=== PATIENT | male | born 1985 | race African-American/Black ===

== ENCOUNTER 2019-01-09 04:16 | Emergency (ER) | payer MEDICARE, MEDICAID ==
[~2019-01-09] VITALS: Ht 180.3 cm; Wt 73.0 kg
[~2019-01-09 04:16] MED LIST: ABILIFY
[2019-01-09 05:45] VITALS: BP 118/69
== END 2019-01-09 06:13 | disposition left against medical advice (07) ==
LOC: ER 04:16
DX: J45.909 Unspecified asthma, uncomplicated (principal); F12.10 Cannabis abuse, uncomplicated; F17.200 Nicotine dependence, unspecified, uncomplicated; Z88.8 Allergy status to other drugs, medicaments and biological substances
CPT/HCPCS: 99281

== ENCOUNTER 2019-01-10 13:48 | Inpatient (IN) | payer MEDICARE, MEDICAID ==
[~2019-01-10] VITALS: Ht 175.3 cm; Wt 80.8 kg
[2019-01-10] MEDS ORDERED: HALOPERIDOL LACTATE 5MG/ML VIAL IM ONE (14:15)
[2019-01-10] MEDS ORDERED: LORAZEPAM 2MG/ML CPJ IM ONE ×2 (14:15→16:00)
[2019-01-10] MEDS ORDERED: SODIUM CHLORIDE 0.9% 1,000 ML IV ONE (15:41)
[2019-01-10] MEDS ORDERED: DIPHENHYDRAMINE 50MG/ML VIAL IM ONE (16:00)
[2019-01-10 16:56] LABS: HEMATOCRIT. 38.1 % (42.0-52.0); HEMOGLOBIN. 12.7 g/dL (14.0-18.0); MEAN CORPUSCULAR HEMOGLOBIN 27.5 pg (28.0-32.0); MEAN CORPUSCULAR VOLUME 82.5 fL (80.0-94.0); MEAN PLATELET VOLUME 7.7 fl (7.4-10.4); PLATELET 265 x1000/uL (130-400); RED BLOOD CELL COUNT 4.62 mill/uL (4.7-6.1); RED CELL DISTRIBUTION WIDTH 14.7 % (11.6-14.6)
[2019-01-10 17:00] LABS: CHLORIDE 109 mEq/L (98-107)
[2019-01-10 17:03] LABS: ETHANOL BLOOD < 10 mg/dL
[2019-01-10 17:06] LABS: *BARBITURATES SCREEN URINE NEGATIVE (NEGATIVE); *COCAINE SCREEN URINE NEGATIVE (NEGATIVE)
[2019-01-10 17:07] LABS: *AMPHETAMINES SCREEN URINE NEGATIVE (NEGATIVE); *BENZODIAZEPINES SCREEN URINE NEGATIVE (NEGATIVE); METHADONE URINE SCREEN NEGATIVE (NEGATIVE); OPIATES URINE SCREEN NEGATIVE (NEGATIVE)
[2019-01-10 17:08] LABS: CANNABINOID URINE SCREEN PRESUMTIVE POSITIVE (NEGATIVE); PHENCYCLIDINE URINE SCREEN NEGATIVE (NEGATIVE)
[2019-01-10 18:10] LABS: PLATELET ESTIMATE NORMAL
[2019-01-11] MEDS ORDERED: HALOPERIDOL LACTATE 5MG/ML VIAL IM ONE ×3 (02:45→16:45)
[2019-01-11] MEDS ORDERED: DIPHENHYDRAMINE 50MG/ML VIAL IM ONE ×2 (03:30→18:30)
[2019-01-11] MEDS ORDERED: LORAZEPAM 2MG/ML CPJ IM ONE ×4 (04:30→18:30)
[2019-01-11] MEDS ORDERED: LORAZEPAM 2MG/ML CPJ IM STA (09:28)
[2019-01-11] MEDS ORDERED: OLANZAPINE 10 MG/VIAL IM ONE (09:30)
[2019-01-12] MEDS ORDERED: DIPHENHYDRAMINE 50MG/ML VIAL IM STA ×2 (05:26→13:12)
[2019-01-12] MEDS ORDERED: HALOPERIDOL LACTATE 5MG/ML VIAL IM ONE (05:30)
[2019-01-12] MEDS ORDERED: QUETIAPINE FUMARATE 100MG TABLET PO STA (09:06)
[2019-01-12] MEDS ORDERED: LORAZEPAM 2MG/ML CPJ IM STA (13:12)
[2019-01-12] MEDS ORDERED: OLANZAPINE 10 MG/VIAL IM ONE ×2 (13:15)
[2019-01-12 15:28] LABS: HEPATITIS B SURFACE AB 58.4 mIU/mL
[2019-01-12 15:39] LABS: HEPATITIS B SURFACE ANTIGEN NEGATIVE
[2019-01-12] MEDS ORDERED: LORAZEPAM 2MG/ML CPJ IM ONE ×3 (18:45→19:30)
[2019-01-12] MEDS ORDERED: DIPHENHYDRAMINE 50MG/ML VIAL IM ONE (19:30)
[2019-01-13] MEDS ORDERED: OLANZAPINE 10 MG/VIAL IM ONE ×4 (02:30→18:36)
[2019-01-13] MEDS ORDERED: LORAZEPAM 2MG/ML CPJ IM ONE ×4 (02:30→21:45)
[2019-01-13 04:19] LABS: HEPATITIS B CORE ANTIBODY Negative (Negative); HIV SCREEN 4G Non Reactive (Non Reactive)
[2019-01-13 11:01] LABS: HEPATITIS B SURFACE ANTIGEN NEGATIVE
[2019-01-13 12:30] LABS: CHLORIDE 108 mEq/L (98-107)
[2019-01-13] MEDS ORDERED: CLONAZEPAM 1MG TABLET PO ONE (14:15)
[2019-01-13] MEDS ORDERED: QUETIAPINE FUMARATE 100MG TABLET PO SCH (18:29)
[2019-01-13] MEDS ORDERED: LORAZEPAM 2MG/ML CPJ ONE (18:37)
[2019-01-13] MEDS ORDERED: CLONAZEPAM 1MG TABLET ONE (18:38)
[2019-01-13] MEDS ORDERED: DEXT 5%/0.45% NACL 1000ML 1,000 ML IV ONE (21:35)
[2019-01-14 00:09] LABS: BASOPHILS % 0.5 % (0.0-2.0); EOSINOPHILS % 3.4 % (0.0-5.0); HEMATOCRIT. 40.1 % (42.0-52.0); HEMOGLOBIN. 13.6 g/dL (14.0-18.0); LYMPHOCYTES % 25.9 % (20.0-50.0); MEAN CORPUSCULAR HEMOGLOBIN 27.6 pg (28.0-32.0); MEAN CORPUSCULAR VOLUME 81.9 fL (80.0-94.0); MEAN PLATELET VOLUME 7.2 fl (7.4-10.4); MONOCYTES % 14.5 % (2.0-8.0); NEUTROPHILS % 55.7 % (40.0-76.0); PLATELET 283 x1000/uL (130-400); RED CELL DISTRIBUTION WIDTH 15.3 % (11.6-14.6)
[2019-01-14 00:12] LABS: CHLORIDE 106 mEq/L (98-107)
[2019-01-14] MEDS ORDERED: OLANZAPINE 10 MG/VIAL IM ONE ×2 (08:45→22:45)
[2019-01-14] MEDS ORDERED: LORAZEPAM 2MG/ML CPJ IM STA ×2 (10:48→13:02)
[2019-01-14] MEDS ORDERED: SODIUM CHLORIDE 0.9% 1,000 ML IV ONE (13:50)
[2019-01-14] MEDS ORDERED: DEXT 5%/0.9% NACL 1,000 ML IV ONE (18:26)
[2019-01-14] MEDS ORDERED: LORAZEPAM 2MG/ML CPJ IM ONE (22:45)
[2019-01-15] MEDS ORDERED: LORAZEPAM 2MG/ML CPJ IV ONE (10:00)
[2019-01-15] MEDS ORDERED: OLANZAPINE 10 MG/VIAL IM ONE (10:00)
[2019-01-15] MEDS ORDERED: BENZTROPINE MESYLATE 1MG/1ML 2ML AMP IM ONE (18:45)
[2019-01-15] MEDS ORDERED: HALOPERIDOL LACTATE 5MG/ML VIAL IM ONE (18:45)
[2019-01-15] MEDS ORDERED: HALOPERIDOL 5MG TABLET PO PRN (19:00)
[2019-01-15] MEDS: QUETIAPINE FUMARATE 100MG TABLET PO SCH (19:00)
[2019-01-15] MEDS: HALOPERIDOL LACTATE 5MG/ML VIAL IM SCH (19:00)
[2019-01-15] MEDS ORDERED: LORAZEPAM 2MG/ML CPJ IV PRN (19:15)
[2019-01-16] MEDS: HALOPERIDOL LACTATE 5MG/ML VIAL IM SCH (08:44)
[2019-01-16] MEDS ORDERED: OLANZAPINE 10 MG/VIAL IM SCH (09:00)
[2019-01-16] MEDS: DIPHENHYDRAMINE 50MG/ML VIAL IM PRN ×2 (09:57→16:21)
[2019-01-16] MEDS ORDERED: LORAZEPAM 2MG/ML CPJ IM ONE (10:00)
[2019-01-16 10:45] LABS: CHLORIDE 105 mEq/L (98-107)
[2019-01-16 11:06] LABS: CREATINE KINASE 1396 IU/L (39-308)
[2019-01-16] MEDS ORDERED: LORAZEPAM 2MG/ML CPJ IM PRN (16:00)
[2019-01-17 10:54] LABS: CREATINE KINASE 2424 IU/L (39-308)
[2019-01-17] MEDS ORDERED: HALOPERIDOL LACTATE 5MG/ML VIAL IM ONE (11:15)
[2019-01-17] MEDS ORDERED: LORAZEPAM 2MG/ML CPJ IM ONE (11:15)
[2019-01-17] MEDS ORDERED: SODIUM CHLORIDE 0.9% 1,000 ML IV ONE ×4 (14:30→22:39)
[2019-01-17] MEDS ORDERED: HALOPERIDOL LACTATE 5MG/ML VIAL IM NR (18:45)
[2019-01-18] VITALS (43 sets, daily range): BP systolic 102–236; BP diastolic 55–107
[2019-01-18] MEDS ORDERED: HALOPERIDOL LACTATE 5MG/ML VIAL IM ONE (02:15)
[2019-01-18] MEDS ORDERED: BENZTROPINE MESYLATE 1MG/1ML 2ML AMP IM ONE (02:15)
[2019-01-18] MEDS: OLANZAPINE 10 MG/VIAL IM SCH ×3 (02:27→18:18)
[2019-01-18 03:00] LABS: CREATINE KINASE 2036 IU/L (39-308)
[2019-01-18] MEDS ORDERED: ZIPRASIDONE MESYLATE 20MG/VIAL IM PRN (09:30)
[2019-01-18] MEDS: BENZTROPINE MESYLATE 1MG/1ML 2ML AMP IM SCH ×2 (09:53→19:53)
[2019-01-18] MEDS ORDERED: ONDANSETRON HCL 4MG/2ML INJ IV PRN (12:00)
[2019-01-18] MEDS ORDERED: IPRATROPIUM/ALBUTEROL 0.5-3(2.5)MG/3ML NEB INH PRN (12:00)
[2019-01-18] MEDS: HALOPERIDOL LACTATE 5MG/ML VIAL IM SCH ×3 (12:29→23:49)
[2019-01-18 13:06] LABS: PHOSPHORUS 3.9 mg/dL (2.5-4.9)
[2019-01-18] MEDS: SODIUM CHLORIDE 0.45% 1,000 ML IV SCH ×2 (14:12→22:28)
[2019-01-18] MEDS: ENOXAPARIN 40MG/0.4ML SYR SUBCUT SCH (14:16)
[2019-01-18] MEDS: QUETIAPINE FUMARATE 100MG TABLET PO SCH ×2 (15:17→22:25)
[2019-01-18 15:26] LABS: CREATINE KINASE MB FRACTION 6.4 ng/mL (0.5-3.6)
[2019-01-18] MEDS: LORAZEPAM 2MG/ML CPJ IM SCH ×2 (17:00→18:17)
[2019-01-18] MEDS ORDERED: BENZ1TAB7 MT (17:32)
[2019-01-18] MEDS ORDERED: OLAN10TA3 PO (17:32)
[2019-01-18] MEDS ORDERED: QUET200T PO (17:32)
[2019-01-18] MEDS ORDERED: OLAN2.5T3 MT (17:32)
[2019-01-19] VITALS (19 sets, daily range): BP systolic 94–147; BP diastolic 27–88
[2019-01-19] MEDS: SODIUM CHLORIDE 0.45% 1,000 ML IV SCH ×4 (05:00→23:01)
[2019-01-19] MEDS: HALOPERIDOL LACTATE 5MG/ML VIAL IM SCH ×3 (05:26→21:05)
[2019-01-19] MEDS ORDERED: ZIPRASIDONE MESYLATE 20MG/VIAL IM PRN (08:15)
[2019-01-19] MEDS: QUETIAPINE FUMARATE 100MG TABLET PO SCH ×2 (08:28→21:00)
[2019-01-19] MEDS: LORAZEPAM 2MG/ML CPJ IM SCH ×2 (08:29→21:05)
[2019-01-19] MEDS: BENZTROPINE MESYLATE 1MG TABLET PO SCH ×2 (09:07→21:00)
[2019-01-19] MEDS: OLANZAPINE 10MG TABLET PO SCH ×2 (09:07→16:28)
[2019-01-19] MEDS ORDERED: HALOPERIDOL LACTATE 5MG/ML VIAL IM PRN (15:00)
[2019-01-19] MEDS: ENOXAPARIN 40MG/0.4ML SYR SUBCUT SCH (15:36)
[2019-01-19] MEDS: ACETAMINOPHEN 325MG TABLET PO PRN (17:16)
[2019-01-20] VITALS (21 sets, daily range): BP systolic 51–156; BP diastolic 42–93
[2019-01-20] MEDS: ACETAMINOPHEN 325MG TABLET PO PRN (01:10)
[2019-01-20] MEDS: SODIUM CHLORIDE 0.45% 1,000 ML IV SCH ×2 (05:47→15:03)
[2019-01-20] MEDS ORDERED: DIPHENHYDRAMINE 50MG/ML VIAL IM ONE (10:30)
[2019-01-20] MEDS: LORAZEPAM 2MG/ML CPJ IM SCH ×2 (10:32→20:34)
[2019-01-20] MEDS: HALOPERIDOL LACTATE 5MG/ML VIAL IM SCH ×2 (10:33→20:34)
[2019-01-20] MEDS: BENZTROPINE MESYLATE 1MG TABLET PO SCH ×2 (10:33→20:33)
[2019-01-20] MEDS: OLANZAPINE 10MG TABLET PO SCH ×2 (10:34→18:09)
[2019-01-20] MEDS: QUETIAPINE FUMARATE 100MG TABLET PO SCH ×2 (10:34→20:33)
[2019-01-20] MEDS: LORAZEPAM 2MG/ML CPJ IM PRN ×2 (10:35→17:55)
[2019-01-20 10:54] LABS: BASOPHILS % 0.9 % (0.0-2.0); EOSINOPHILS % 2.6 % (0.0-5.0); HEMATOCRIT. 42.7 % (42.0-52.0); HEMOGLOBIN. 14.1 g/dL (14.0-18.0); LYMPHOCYTES % 45.1 % (20.0-50.0); MEAN CORPUSCULAR HEMOGLOBIN 27.3 pg (28.0-32.0); MEAN CORPUSCULAR VOLUME 82.9 fL (80.0-94.0); MEAN PLATELET VOLUME 7.8 fl (7.4-10.4); MONOCYTES % 13.7 % (2.0-8.0); NEUTROPHILS % 37.7 % (40.0-76.0); PLATELET 303 x1000/uL (130-400); RED BLOOD CELL COUNT 5.15 mill/uL (4.7-6.1); RED CELL DISTRIBUTION WIDTH 14.9 % (11.6-14.6)
[2019-01-20 11:00] LABS: CHLORIDE 106 mEq/L (98-107)
[2019-01-20 11:06] LABS: PHOSPHORUS 3.1 mg/dL (2.5-4.9)
[2019-01-20 11:23] LABS: CREATINE KINASE 1614 IU/L (39-308)
[2019-01-20] MEDS ORDERED: DIPHENHYDRAMINE 50MG/ML VIAL IM PRN (12:45)
[2019-01-20] MEDS: ENOXAPARIN 40MG/0.4ML SYR SUBCUT SCH (16:40)
[2019-01-20] MEDS: HALOPERIDOL LACTATE 5MG/ML VIAL IM PRN (17:55)
[2019-01-21] MEDS: SODIUM CHLORIDE 0.45% 1,000 ML IV SCH ×3 (00:24→20:13)
[2019-01-21 05:27] LABS: BASOPHILS % 1.1 % (0.0-2.0); EOSINOPHILS % 3.4 % (0.0-5.0); HEMATOCRIT. 41.6 % (42.0-52.0); HEMOGLOBIN. 13.9 g/dL (14.0-18.0); LYMPHOCYTES % 31.1 % (20.0-50.0); MEAN CORPUSCULAR HEMOGLOBIN 27.4 pg (28.0-32.0); MEAN CORPUSCULAR VOLUME 82.3 fL (80.0-94.0); MEAN PLATELET VOLUME 7.3 fl (7.4-10.4); MONOCYTES % 13.3 % (2.0-8.0); NEUTROPHILS % 51.1 % (40.0-76.0); PLATELET 315 x1000/uL (130-400); RED BLOOD CELL COUNT 5.05 mill/uL (4.7-6.1); RED CELL DISTRIBUTION WIDTH 14.9 % (11.6-14.6)
[2019-01-21 05:28] LABS: CHLORIDE 105 mEq/L (98-107)
[2019-01-21 05:57] LABS: CREATINE KINASE 1294 IU/L (39-308)
[2019-01-21] MEDS: LORAZEPAM 2MG/ML CPJ IM PRN (06:49)
[2019-01-21] MEDS: HALOPERIDOL LACTATE 5MG/ML VIAL IM PRN (06:49)
[2019-01-21] MEDS: BENZTROPINE MESYLATE 1MG TABLET PO SCH ×2 (07:36→21:00)
[2019-01-21] MEDS: OLANZAPINE 10MG TABLET PO SCH ×2 (07:36→17:34)
[2019-01-21] MEDS: QUETIAPINE FUMARATE 100MG TABLET PO SCH ×2 (07:37→21:00)
[2019-01-21] MEDS: HALOPERIDOL LACTATE 5MG/ML VIAL IM SCH ×2 (12:58→21:00)
[2019-01-21 14:30] VITALS: BP 109/50
[2019-01-21] MEDS: LORAZEPAM 2MG/ML CPJ IM SCH ×2 (14:48→21:00)
[2019-01-21] MEDS: ENOXAPARIN 40MG/0.4ML SYR SUBCUT SCH (17:33)
[2019-01-21 23:53] VITALS: BP 120/67
[2019-01-22 04:36] VITALS: BP 133/77
[2019-01-22 05:05] LABS: BASOPHILS % 0.6 % (0.0-2.0); HEMATOCRIT. 47.7 % (42.0-52.0); HEMOGLOBIN. 15.6 g/dL (14.0-18.0); LYMPHOCYTES % 33.8 % (20.0-50.0); MEAN CORPUSCULAR HEMOGLOBIN 27.1 pg (28.0-32.0); MEAN PLATELET VOLUME 7.3 fl (7.4-10.4); NEUTROPHILS % 50.6 % (40.0-76.0); PLATELET 328 x1000/uL (130-400); RED BLOOD CELL COUNT 5.75 mill/uL (4.7-6.1); RED CELL DISTRIBUTION WIDTH 15.5 % (11.6-14.6)
[2019-01-22 05:11] LABS: CHLORIDE 105 mEq/L (98-107)
[2019-01-22 05:22] LABS: CREATINE KINASE 734 IU/L (39-308)
[2019-01-22] MEDS: SODIUM CHLORIDE 0.45% 1,000 ML IV SCH (06:10)
[2019-01-22] MEDS: QUETIAPINE FUMARATE 100MG TABLET PO SCH ×2 (09:00→20:46)
[2019-01-22] MEDS: LORAZEPAM 2MG/ML CPJ IM SCH ×2 (09:00→20:46)
[2019-01-22] MEDS: HALOPERIDOL LACTATE 5MG/ML VIAL IM SCH ×2 (09:00→20:46)
[2019-01-22] MEDS: OLANZAPINE 10MG TABLET PO SCH ×2 (09:00→17:00)
[2019-01-22] MEDS: BENZTROPINE MESYLATE 1MG TABLET PO SCH ×2 (09:00→20:46)
[2019-01-22] MEDS: ENOXAPARIN 40MG/0.4ML SYR SUBCUT SCH (13:30)
[2019-01-23] MEDS: SODIUM CHLORIDE 0.45% 1,000 ML IV SCH (08:00)
[2019-01-23] MEDS: HALOPERIDOL LACTATE 5MG/ML VIAL IM SCH ×2 (09:00→19:10)
[2019-01-23] MEDS: OLANZAPINE 10MG TABLET PO SCH ×2 (09:00→17:00)
[2019-01-23] MEDS: QUETIAPINE FUMARATE 100MG TABLET PO SCH ×2 (09:00→19:06)
[2019-01-23] MEDS: BENZTROPINE MESYLATE 1MG TABLET PO SCH ×2 (09:00→19:06)
[2019-01-23] MEDS: LORAZEPAM 2MG/ML CPJ IM SCH ×2 (09:00→19:10)
[2019-01-23 13:09] LABS: HEMATOCRIT. 44.4 % (42.0-52.0); HEMOGLOBIN. 14.9 g/dL (14.0-18.0); MEAN CORPUSCULAR HEMOGLOBIN 27.3 pg (28.0-32.0); MEAN CORPUSCULAR VOLUME 81.5 fL (80.0-94.0); MEAN PLATELET VOLUME 7.2 fl (7.4-10.4); PLATELET 344 x1000/uL (130-400); RED BLOOD CELL COUNT 5.45 mill/uL (4.7-6.1); RED CELL DISTRIBUTION WIDTH 15.1 % (11.6-14.6)
[2019-01-23 13:16] LABS: CHLORIDE 105 mEq/L (98-107)
[2019-01-23 13:24] LABS: CREATINE KINASE 382 IU/L (39-308)
[2019-01-23] MEDS: ENOXAPARIN 40MG/0.4ML SYR SUBCUT SCH ×2 (13:30→17:14)
[2019-01-23 13:37] LABS: ATYPICAL LYMPHOCYTES 1; NUCLEATED RED BLOOD CELLS 1 /100 WBC; PLATELET ESTIMATE NORMAL
[2019-01-24] MEDS: LORAZEPAM 2MG/ML CPJ IM SCH (08:13)
[2019-01-24] MEDS: HALOPERIDOL LACTATE 5MG/ML VIAL IM SCH ×2 (08:13→20:38)
[2019-01-24] MEDS: QUETIAPINE FUMARATE 100MG TABLET PO SCH ×2 (08:13→20:38)
[2019-01-24] MEDS: BENZTROPINE MESYLATE 1MG TABLET PO SCH ×2 (08:13→20:38)
[2019-01-24] MEDS: OLANZAPINE 10MG TABLET PO SCH ×2 (08:14→16:33)
[2019-01-24 19:48] VITALS: BP 113/69
[2019-01-25 00:07] VITALS: BP 119/63
[2019-01-25] MEDS: SODIUM CHLORIDE 0.45% 1,000 ML IV SCH ×2 (04:13→14:13)
[2019-01-25 04:28] VITALS: BP 126/77
[2019-01-25 08:00] VITALS: BP 143/89
[2019-01-25] MEDS: HALOPERIDOL LACTATE 5MG/ML VIAL IM SCH (09:11)
[2019-01-25] MEDS: QUETIAPINE FUMARATE 100MG TABLET PO SCH (09:11)
[2019-01-25] MEDS: BENZTROPINE MESYLATE 1MG TABLET PO SCH (09:11)
[2019-01-25] MEDS: OLANZAPINE 10MG TABLET PO SCH (09:11)
[2019-01-25] MEDS: ENOXAPARIN 40MG/0.4ML SYR SUBCUT SCH (13:30)
[2019-01-25 16:00] VITALS: BP 155/89
[2019-01-25 16:50] VITALS: BP 155/89
== END 2019-01-25 17:35 | DRG 558 ==
LOC: ER 13:56 → UNDOADMIN 01-13 13:00 → CVICU 01-13 13:00 → ENRESERV 01-18 11:59 → MICUSO 01-20 10:03
PROVIDERS: ADMIT Internal Medicine; ATTEND Internal Medicine
DX: M62.82 Rhabdomyolysis (principal); R45.851 Suicidal ideations; F30.2 Manic episode, severe with psychotic symptoms; F41.9 Anxiety disorder, unspecified; R45.850 Homicidal ideations; J45.909 Unspecified asthma, uncomplicated; R45.1 Restlessness and agitation; Z79.899 Other long term (current) drug therapy; Z78.1 Physical restraint status
CPT/HCPCS: 36415; 80048; 80305; 80307; 80320; 80329; 82550; 82553; 82962; 83735; 84100; 87389; 99284; J0515; J1200; J1630; J1650; J2060; J3490; J7030; J7042; J7620; G0480